=== PATIENT | male | born 1990 | race Two or more races ===

== ENCOUNTER 2024-01-01 07:41 | Emergency (ER) | payer BC ==
[~2024-01-01] VITALS: Ht 167.6 cm; Wt 65.9 kg
[2024-01-01 07:47] VITALS: TEMP 98.6
[2024-01-01] MEDS ORDERED: AZIT250T9 PO (08:06)
[2024-01-01] MEDS ORDERED: IBUP-45 PO (08:06)
[2024-01-01] MEDS ORDERED: ACET-2080 PO (08:06)
[2024-01-01 08:30] VITALS: BP 111/63; PULSE 85; RESP 16; O2SAT 96
== END 2024-01-01 08:40 | disposition home or self-care (01) ==
LOC: EMS 07:41
DX: J02.9 Acute pharyngitis, unspecified (principal); J45.909 Unspecified asthma, uncomplicated
CPT/HCPCS: 87430; 99283